=== PATIENT | female | born 1960 | race Caucasian/White ===

== ENCOUNTER 2017-03-30 12:09 | Outpatient (CLI) | payer BC ==
[~2017-03-30] VITALS: Ht 157.5 cm; Wt 72.1 kg
[2017-03-30 13:48] LABS: BILIRUBIN,URINE NEGATIVE (NEGATIVE); BLOOD, URINE NEGATIVE (NEGATIVE); CLARITY/URINE CLEAR (CLEAR); COLOR,URINE YELLOW (YELLOW); GLUCOSE,URINE 3+ (NEGATIVE); KETONES,URINE NEGATIVE (NEGATIVE); LEUKOCYTE ESTERASE ,URINE NEGATIVE (NEGATIVE); NITRITE, URINE NEGATIVE (NEGATIVE); PROTEIN URINE NEGATIVE (NEGATIVE); UROBILINOGEN,URINE 0.2 (0.2-1.0)
[2017-03-30 13:52] LABS: HCG,QUAL RESULT NEGATIVE (NEGATIVE)
[2017-03-30 13:56] LABS: BASOPHILS % (AUTO) 0.3 % (0.0-2.0); EOSINOPHILS % (AUTO) 0.1 % (0.0-4.0); HEMATOCRIT 41.2 % (36-48); HEMOGLOBIN 13.6 g/dL (12.0-16.0); LYMPHOCYTES % (AUTO) 34.1 % (20.5-51.5); MEAN CORPUSCULAR HEMOGLOBIN 28 pg (27-31); MEAN CORPUSCULAR HGB CONC 33 % (32-36); MEAN CORPUSCULAR VOLUME 84 fL (79.0-98.0); MONOCYTES # (AUTO) 0.6 K/uL (0.0-1.0); MONOCYTES % (AUTO) 5.3 % (1.7-9.3); NEUTROPHILS % (AUTO) 60.2 % (40.0-70.0); PLATELET COUNT (AUTO) 316 K/uL (130-430); RED BLOOD CELL COUNT(AUTO) 4.89 MIL/uL (4.2-6.2); RED CELL DISTRIBUTION WIDTH 13.2 % (9.0-15.0); WHITE BLOOD COUNT (AUTO) 11.6 K/uL (4.8-10.8)
[2017-03-30 13:58] LABS: ALBUMIN 3.5 g/dL (3.4-4.8); CALCIUM 9.6 mg/dL (8.4-11.0); CREATININE 0.64 mg/dL (0.55-1.30); TOTAL BILIRUBIN 0.5 mg/dL (0.0-1.0); TOTAL PROTEIN, SERUM 7.4 g/dL (6.4-8.3)
[2017-03-30 14:00] LABS: BACTERIA,URINE RARE /HPF (None Seen); RBC,URINE NONE SEEN /HPF (0-3); WBC,URINE NONE SEEN /HPF (0-3)
[2017-03-30 14:01] LABS: MUCUS,URINE None Seen /LPF (None Seen)
[2017-03-30 14:05] LABS: PROTHROMBIN TIME 10.8 SECS (9.5-12.5)
[2017-04-04 05:48] VITALS: BP_SYST 129
== END 2017-03-30 17:30 | disposition home or self-care (01) ==
LOC: SLB 12:09 → SMU 04-04 05:40 → SDS 04-04 05:40 → SMU 04-04 07:05 → EDSTATUS 04-04 07:30
PROVIDERS: ATTEND Surgery
DX: K80.20 Calculus of gallbladder without cholecystitis without obstruction (principal); M75.31 Calcific tendinitis of right shoulder; R07.9 Chest pain, unspecified
CPT/HCPCS: 36415; 80053; 81000-TC; 82962; 84703; 85025; 85610-TC; 85730-TC

== ENCOUNTER 2017-04-06 11:15 | Day surgery (SDC) | payer BC ==
[~2017-04-06] VITALS: Ht 157.5 cm; Wt 72.1 kg
[2017-04-06] MEDS ORDERED: CEFAZOLIN 1 GM IVPB PREMIX 50 ML IV ONE ×2 (11:45→12:55)
[2017-04-06] MEDS ORDERED: KETOROLAC TROMETHAMINE 30 MG VIAL IVP ONE (12:55)
[2017-04-06] MEDS ORDERED: DEXAMETHASONE SOD PHOSPHATE 4 MG/ML VIAL IVP ONE (12:55)
[2017-04-06] MEDS ORDERED: ROCURONIUM BROMIDE 10 MG/ML (ZEMURON) IV ONE (12:55)
[2017-04-06] MEDS ORDERED: PHENYLEPHRINE HCL 10 MG/ML VIAL (NEOSYNEPHRINE) IV ONE (12:55)
[2017-04-06] MEDS ORDERED: fentaNYL CITRATE 250 MCG/5 ML AMP IV ONE (12:55)
[2017-04-06] MEDS ORDERED: GLYCOPYRROLATE 0.2 MG/ML VIAL IJ ONE (12:55)
[2017-04-06] MEDS ORDERED: LR 1,000 ML IV.SOLN IV ONE (12:55)
[2017-04-06] MEDS ORDERED: PROPOFOL 200MG/ 20ML VIAL (DIPRIVAN) IV ONE (12:55)
[2017-04-06] MEDS ORDERED: MIDAZOLAM HCL 5 MG/5 ML VIAL IVP ONE (12:55)
[2017-04-06] MEDS ORDERED: BUPIVACAINE /EPINEPHRINE/PF 0.25% 30 ML VIAL INJ ONE (12:55)
[2017-04-06] MEDS ORDERED: ONDANSETRON HCL 4 MG/2 ML VIAL IVP ONE (12:55)
[2017-04-06] MEDS ORDERED: NS 1000 ML BAG IV ONE (12:55)
[2017-04-06] MEDS ORDERED: SEVOFLURANE 15 MIN GAS INH ONE (12:55)
[2017-04-06] MEDS ORDERED: LR 1,000 ML IV SCH (14:08)
[2017-04-06] MEDS ORDERED: HYDROmorphone 2 MG/ML VIAL IVP PRN ×2 (14:15)
[2017-04-06] MEDS ORDERED: HYDROmorphone 1 MG INJ. 1 MG/ML AMPUL IVP PRN (14:15)
[2017-04-06] MEDS ORDERED: MEPERIDINE HCL/PF 25 MG/ML DISP.SYRIN IVP PRN (14:15)
[2017-04-06] MEDS ORDERED: HYDROmorphone 1 MG INJ. 1 MG/ML AMPUL IM PRN (15:00)
[2017-04-06] MEDS ORDERED: ONDANSETRON HCL 4 MG/2 ML VIAL IVP PRN (15:00)
[2017-04-06] MEDS ORDERED: HYDROcodone/ACETAMIN 5-325 MG TAB (NORCO/ VICODIN) PO PRN (15:00)
[2017-04-06] MEDS ORDERED: D5/0.45 NS 1,000 ML IV SCH (15:00)
[2017-04-06] MEDS ORDERED: HYDROmorphone 1 MG INJ. 1 MG/ML AMPUL ONE (15:04)
[2017-04-06 15:50] LABS: CALCIUM 8.8 mg/dL (8.4-11.0); CREATININE 0.67 mg/dL (0.55-1.30); POTASSIUM 3.6 mmol/L (3.5-5.1)
[2017-04-06 15:54] LABS: ALBUMIN 3.4 g/dL (3.4-4.8); BILIRUBIN,DIRECT 0.2 mg/dL (0.0-0.3); TOTAL BILIRUBIN 0.4 mg/dL (0.0-1.0)
[2017-04-06 15:58] VITALS: BP_SYST 121
== END 2017-04-06 17:55 | disposition home or self-care (01) ==
LOC: SDS 11:15 → SMU 11:15 → SDS 17:55
PROVIDERS: ATTEND Surgery
DX: K80.10 Calculus of gallbladder with chronic cholecystitis without obstruction (principal); E66.9 Obesity, unspecified; Z68.33 Body mass index [BMI] 33.0-33.9, adult; E11.9 Type 2 diabetes mellitus without complications; I10 Essential (primary) hypertension; Z79.84 Long term (current) use of oral hypoglycemic drugs; E78.5 Hyperlipidemia, unspecified
CPT/HCPCS: 36415; 47562; 80048; 80076; 82962; 88304; C1727; J0690; J1100; J1170; J1885; J2250; J2370; J2405; J2704; J3010; J3490 ×2; J7030; J7120